=== PATIENT | female | born 1990 | race American Indian/Alaskan Native ===

== ENCOUNTER 2017-05-23 09:38 | Day surgery (SDC) | payer OTHER ==
[2017-05-22 08:22] VITALS: BMI 32.5
[2017-05-23 10:26] LABS: HEMOGLOBIN 11.4 g/dL (11.0-16.0); MEAN CELL VOLUME 90.2 fL (81.0-99.0); MEAN CORPUSCULAR HEMOGLOBIN 31.3 pg (27.0-31.0); MEAN CORPUSCULAR HGB CONC 34.7 g/dL (33.0-37.0); MEAN PLATELET VOLUME 7.8 fL (7.2-11.7); RBC 3.63 Mil/uL (3.80-5.20); RED CELL DISTRIBUTION WIDTH 13.3 % (11.5-14.5); WHITE BLOOD COUNT 5.4 K/uL (4.8-10.8)
[2017-05-23] MEDS ORDERED: ceFAZolin 1 gm in NS 0 GM/0 ML BAG IVPB ONE (12:06)
[2017-05-23] MEDS ORDERED: Propofol 10 mg/ml Inj (20 ML) ONE (12:17)
[2017-05-23] MEDS ORDERED: Midazolam 2 MG/2 ML VIAL ONE (12:17)
[2017-05-23] MEDS ORDERED: Lidocaine Hydrochloride 5 ML INJ ONE (12:18)
[2017-05-23] MEDS ORDERED: Lidocaine Hydrochloride 10 ML INJ ONE (12:23)
--- NOTE | 2017-05-23 13:06 | PCM.SURG1 ---
Surgeon's Initial Post Op Note - Surgeon's Notes Surgeon: Dr. King` Physician/Ophthalmologist: Dr. Hargrove Type of Anesthesia: General Endo, IV Sedation Anesthesia Administered By: Keila Pre-Operative Diagnosis: Foreign Body Right thigh Operative Findings: same Post-Operative Diagnosis: same Operation Performed: Removal of Foreign Body Right thigh Specimen/Specimens Removed: needle Estimated Blood Loss: EBL {In ML}: 5 Blood Products Given: N/A Drains Used: No Drains Post-Op Condition: Good Date of Surgery/Procedure: 05/23/17 Time of Surgery/Procedure: 13:06
[2017-05-23] MEDS ORDERED: HYDROmorphone 0.5 mg/0.5 ml ISec IVP PRN (13:11)
[2017-05-23] MEDS ORDERED: Oxycodone/Acetaminophen 5/325 mg Tab PO ONE (13:15)
[2017-05-23] MEDS ORDERED: Lactated Ringer's 1,000 ML IV SCH (13:15)
--- NOTE | 2017-05-23 14:14 | RAD ---
PROCEDURE: Intraoperative Fluoroscopy. HISTORY: RT HIP Foreign BODY FINDINGS: Fluoroscopic assistance was provided for removal of foreign body.. Please refer to the operative report from MARI Golden. Total fluoroscopic time (continuous mode) utilized during the procedure 8.8 (seconds).
[2017-05-23 16:25] VITALS: RESP 16
[2017-05-23 16:28] VITALS: BP 103/58; PULSE 73; TEMP 97.9; O2SAT 100
--- NOTE | 2017-05-24 00:35 | OP ---
PROCEDURE DATE: 05/23/2017 SURGEON: Gilberto King MD STRAIGHT EDGER: Dr. Hargrove. TYPE OF ANESTHESIA: General. PREOPERATIVE DIAGNOSIS: Foreign body right thigh. POSTOPERATIVE DIAGNOSIS: Foreign body right thigh. PROCEDURE: Removal of foreign body right thigh with C-arm. DESCRIPTION OF OPERATION: With the patient in the supine position under adequate general anesthesia, the right thigh was prepped and draped in usual sterile manner. The patient gave a history of having broken a sewing needle in the thigh, approximately 5 inches above the knee and induration was palpable beneath a puncture wound at that side. C-arm examination noted the presumed needle to be lying in a somewhat transverse direction. There was infiltration of 1% lidocaine and longitudinal incision was made over the entry site and taken down through to the subcutaneous tissue. A clamp was then placed down into the track, and using the c-arm, it was noted that this was adjacent to the end of the needle, and the needle was then grasped with the clamp and extracted from the wound. C-arm was again used to confirm that no additional foreign material was present at the site, and approximately, 1 inch long metallic foreign body was consistent with the patient's history. The wound was debrided and closure was performed with two interrupted subcuticular sutures of 4-0 Monocryl and Steri-Strips. Dry sterile dressing was applied. The patient tolerated the procedure well and transferred to recovery room in stable condition. Estimated blood loss for the procedure was 5 mL. Gilberto King MD
== END 2017-05-23 15:27 | disposition home or self-care (01) ==
LOC: C.SDS 09:38
PROVIDERS: ATTEND Specialist
DX: S71.141A Puncture wound with foreign body, right thigh, initial encounter (principal); W26.8XXA Contact with other sharp object(s), not elsewhere classified, initial encounter; W45.8XXA Other foreign body or object entering through skin, initial encounter
CPT/HCPCS: 10120; 36415; 76000; 85027; 88300; J1170; J2250; J2704; J3010